=== PATIENT | female | born 1955 | race African-American/Black ===

== ENCOUNTER → 2016-11-01 | Day surgery (SDC) | payer OTHER ==
--- NOTE | 2016-11-04 09:11 | PATH ---
Surgical Pathology Report Patient Name: ROSA MARIA CARBAJAL [facility]. Rec. #: [id number] /Age/Gender: 1955 (Age: 61) / F Account: [id number] Location: [facility] RADIOLOGY U Taken: 11/01/2016 Received: 11/01/2016 Reported: 11/04/2016 Physicians: Maria De Jesus Downing M.D. 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 REMAINING BREAST TISSUE WITH FIBROCYSTIC CHANGES INCLUDING USUAL DUCTAL HYPERPLASIA (UDH), STROMAL FIBROSIS, DUCTAL DILATATION, AND CYSTIC APOCRINE METAPLASIA. Comment: Also see prior specimens [id number] and [id number]. Electronically Signed Olegario Lerner M.D. Gross Description Received in formalin labeled "right breast 4-5:00 retro," are 5 marshall-yellow, cylindrical portions of fibroadipose tissue ranging from 0.5-2.0 cm. in length and averaging 0.2 cm. in diameter. The specimen is submitted in toto in one cassette. Time to formalin fixation: Less than one minute Total formalin fixation time: Approximately 8 hours saudi/11/01/2016
--- NOTE | 2016-11-04 14:02 | OP ---
DATE OF OPERATION: 11/01/2016 PREOPERATIVE DIAGNOSIS: Right breast mass 4-5 o'clock, retroareolar. POSTOPERATIVE DIAGNOSIS: Right breast mass 4-5 o'clock, retroareolar. PROCEDURE: Right ultrasound-guided core biopsy with clip placement. ANESTHESIA: Local. ATTENDING SURGEON: Mj Funk MD ESTIMATED BLOOD LOSS: Minimal. COMPLICATIONS: None. PROCEDURE: Patient was made aware of the risks and benefits of the procedure and consented. She was placed in supine condition. Under sterile conditions with 1% lidocaine for local anesthesia, a small shantelle was made in the skin. Using a 13-gauge approach, 5 cores were obtained and submitted to Pathology. Likewise, under ultrasound guidance, a clip was placed into the biopsy region. Well tolerated by the patient. Steri-Strips and a sterile bandage were applied. We will contact her with the results. MJ FUNK M.D. [id number]
== END | disposition home or self-care (01) ==
LOC: FRADUS-SUR 13:03
PROVIDERS: ATTEND Surgery Surgical Oncology
PROC: 0HBT3ZX Excision of Right Breast, Percutaneous Approach, Diagnostic (ICD-10-PCS; principal; 2016-11-01)
DX: N63 Unspecified lump in breast (principal); N60.31 Fibrosclerosis of right breast; N60.81 Other benign mammary dysplasias of right breast; N64.89 Other specified disorders of breast; N60.11 Diffuse cystic mastopathy of right breast; D24.1 Benign neoplasm of right breast
CPT/HCPCS: 19083; 87899; 88305-TC; A4648

== ENCOUNTER 2017-06-19 16:33 | Inpatient (IN) | payer OTHER ==
--- NOTE | 2017-06-19 16:38 | PDOC ---
History of Present Illness - General Chief Complaint: Chest Pain Stated Complaint: CHEST PAIN X 1 MONTH Time Seen by Provider: 06/19/17 16:38 - History of Present Illness Initial Comments: 06/19/17 16:56 The patient is a 61 year old female, with a significant past medical history of cystic breasts, fibroids, who presents to the emergency department with chest pain for 1 month. Patient states that she has been having chest pain upon exertion and has to constantly pause when she walks. She states that her chest pain subsides when she is at rest. She states that she feels like her heart is beating out of her chest. She that for the past week her chest pain has worsened. She also reports associated SOB upon exertion as well as some cramping sensations in her arms. She denies history of heart attack, no other previous cardiac history. She denies any recent back pain. She denies recent fevers, chills, headache or dizziness. She denies recent nausea, vomit, diarrhea or constipation. She denies recent dysuria, frequency, urgency or hematuria. Allergies: NKA Past surgical history: lumpectomies, hysterectomy. Social history: Nonsmoker. Denies EtOH use and recreational drug use. Primary Care Physician: Erick Webber M.D., Christina) Past History - Past Medical History Anemia: No Asthma: No Cancer: No Cardiac Disorders: No CVA: No COPD: No CHF: No Dementia: No Diabetes: No GI Disorders: No Disorders: No HTN: No Hypercholesterolemia: No Liver Disease: No Seizures: No Thyroid Disease: No - Surgical History Abdominal Surgery: No Appendectomy: No Cardiac Surgery: No Cholecystectomy: No Lung Surgery: No Neurologic Surgery: No Orthopedic Surgery: No - Suicide/Smoking/Psychosocial Hx Smoking Status: No Smoking History: Never smoked Number of Cigarettes Smoked Daily: 0 Hx Alcohol Use: No Drug/Substance Use Hx: No Substance Use Type: None Hx Substance Use Treatment: No - Past Medical History Allergies/Adverse Reactions: Allergies Allergy/AdvReac Type Severity Reaction Status Date / Time No Known Allergies Allergy Verified 06/19/17 16:47 Home Medications: Ambulatory Orders Vit B Cmplx #9/FA/Vit C/Vit E [Renatabs Tablet] 1 tab PO DAILY 06/26/12 Ascorbic Acid [Vitamin C] 1,000 mg PO DAILY 06/19/17 Cholecalciferol (Vitamin D3) [Vitamin D3] 1,000 unit PO DAILY 06/19/17 Vitamin E Acetate [Vitamin E] 1,000 unit PO DAILY 06/19/17 Cardiac Specific PMH - Complaint Specific PMHX Pacemaker: No Review of Systems - Review of Systems Comments:: 06/19/17 16:56 CONSTITUTIONAL: Absent: fever, no chills, no fatigue EYES: Absent: visual changes ENT: Absent: ear pain, no sore throat CARDIOVASCULAR: Present: chest pain on exertion, palpitations. RESPIRATORY: Present: SOB Absent: cough. GI: Absent: abdominal pain, no nausea, no vomiting, no constipation, no diarrhea GENITOURINARY: Absent: dysuria, no frequency, no hematuria MUSKULOSKELETAL: Present: cramping in upper extremities. Absent: back pain, no arthralgia. SKIN: Absent: rash NEURO: Absent: headache (Gabrielle Alegria) *Physical Exam - Vital Signs Last Vital Signs Temp Pulse Resp BP Pulse Ox 98.7 F 109 H 16 146/103 98 06/19/17 16:37 06/19/17 16:37 06/19/17 16:37 06/19/17 16:37 06/19/17 16:37 - Physical Exam Comments: 06/19/17 16:58 GENERAL: Well-appearing, well-nourished. No apparent distress. HEENT: Normocephalic, atraumatic. PERRL, EOM intact. CARDIOVASCULAR: No reproducible chest pain. Normal S1, S2. Regular rate and rhythm. PULMONARY: Clear to auscultation bilaterally. ABDOMEN: Soft, non-distended, non-tender. EXTREMITIES: Normal ROM in all four extremities. No gross deformities. SKIN: Warm, dry. No rash NEUROLOGICAL: No focal neurological deficits. (Gabrielle Alegria) Heart Score/ECG Review - ECG Intrepretation Comment:: 06/19/17 17:26 Sinus tachycardia Possible left atrial enlargement Left axis deviation Nonspecific ST abnormality Vent rate 103 bpm (Gabrielle Alegria) ED Treatment Course - LABORATORY CBC & Chemistry Diagram: 06/19/17 17:35 06/19/17 17:35 - ADDITIONAL ORDERS Additional order review: Laboratory Results 06/19/17 06/19/17 17:35 17:35 Sodium 140 Potassium 3.8 Chloride 108 H Carbon Dioxide 27 Anion Gap 5 L BUN 17 D Creatinine 0.9 D Creat Clearance w eGFR > 60 Random Glucose 110 H D Calcium 9.1 Total Bilirubin 0.4 D AST 44 H ALT 42 H D Alkaline Phosphatase 81 Troponin I 0.09 Total Protein 6.7 Albumin 4.1 06/19/17 17:35 RBC 4.54 MCV 92.9 MCHC 33.5 RDW 12.8 MPV 9.8 Neutrophils % 53.8 Lymphocytes % 32.5 Monocytes % 6.7 Eosinophils % 2.8 Basophils % 4.2 H - RADIOLOGY Radiology Studies Ordered: Category Date Time Status CHEST X-RAY PORTABLE* [RAD] Stat Radiology 06/19/17 16:47 Completed Radiograph Interpretation: 06/19/17 17:22 Chest X-ray Impression: no acute disease Reported by: Tulio Watson MD 06/19/17 [id number] (Gabrielle Alegria) - Medications Given in the ED: ED Medications Discontinued Medications Generic Name Dose Route Start Last Admin Trade Name Freq PRN Reason Stop Dose Admin Aspirin 324 mg 06/19/17 16:47 06/19/17 17:00 Asa - PO 06/19/17 16:48 324 mg ONCE ONE Administration Progress Note - Progress Note Progress Note: Case will be endorsed to Dr. Cook, pt with unstable agina. Will require admission, call to hospitalist made (Partha Velasquez) *DC/Admit/Observation/Transfer Diagnosis at time of Disposition: Unstable angina - Discharge Dispostion Condition at time of disposition: Good - Referrals Referrals: Erick Webber [Primary Care Provider] - - Patient Instructions - Post Discharge Activity - Attestations Scribe Attestion: 06/19/17 17:00 Documentation prepared by Gabrielle Alegria, acting as medical legal investigator for Partha Velasquez MD. (Gabrielle Alegria)
[2017-06-19] MEDS ORDERED: ASPIRIN 81 MG CHEWABLE TABLETS PO ONE (16:47)
[2017-06-19] MEDS ORDERED: ASPIRIN 81 MG CHEWABLE TABLETS ONE (17:04)
[2017-06-19 18:05] LABS: BASO % 4.2 % (0-2.0); EOS % 2.8 % (0-4.5); HEMATOCRIT 42.2 % (32.4-45.2); HEMOGLOBIN 14.1 GM/dl (10.7-15.3); LYMPH % 32.5 % (8-40); MCH 31.1 pg (25.7-33.7); MCHC 33.5 g/dl (32.0-36.0); MEAN CELL VOLUME 92.9 fl (80-96); MEAN PLT VOLUME 9.8 fl (7.5-11.1); MONO % 6.7 % (3.8-10.2); NEUT % 53.8 % (42.8-82.8); PLATELET COUNT 207 K/MM3 (134-434); RBC 4.54 M/mm3 (3.60-5.2); RDW 12.8 % (11.6-15.6); WHITE BLOOD COUNT 5.6 K/mm3 (4.0-10.8)
[2017-06-19 18:12] LABS: ALBUMIN 4.1 g/dl (3.5-5.0); ALK PHOS 81 U/L (32-92); ANION GAP 5 (8-16); BILIRUBIN,TOTAL 0.4 mg/dl (0.2-1.0); BLOOD UREA NITROGEN 17 mg/dl (7-18); CALCIUM 9.1 mg/dl (8.4-10.2); CHLORIDE 108 mmol/L (98-107); CO2 27 mmol/L (22-28); CREATININE 0.9 mg/dl (0.6-1.3); GLUCOSE,RANDOM 110 mg/dl (74-106); POTASSIUM 3.8 mmol/L (3.5-5.1); SGOT/AST 44 U/L (10-42); SGPT/ALT 42 U/L (10-40); SODIUM 140 mmol/L (136-145); TOT PROT 6.7 g/dl (6.4-8.3)
--- NOTE | 2017-06-19 20:08 | HP ---
CHIEF COMPLAINT: Chest Pain PCP: Erick Webber M.D. HISTORY OF PRESENT ILLNESS: This is a 61 y/o woman who presents to the ED with left sided chest pain x 1 month. Patient reports having intermittent squeezing chest pain non- radiating, increased with movement. Patient does report relief at rest. Patient also reports SOB on exertion. Patient denies having any cardiac history. Patient denies strenuous work outs, or heavy lifting. Patient denies fever, chills, cough, dizziness, AP, N/V/D, constipation, dysuria. Patient reports familial hx - Father. ER course was notable for: (1) Troponin I- 0.09 (2) EKG- Sinus Tachycardia, non specific T wave abnormality (3) Chest Xray- No acute disease Recent Travel: None PAST MEDICAL HISTORY: Cystic Breasts Fibroids PAST SURGICAL HISTORY: Lumpectomy x2 Hysterectomy Social History: Smoking: Never Alcohol: None Drugs: None Family History: Father: Cardiac age 86 Allergies No Known Allergies Allergy (Verified 06/19/17 16:47) HOME MEDICATIONS: Home Medications Medication Instructions Recorded Vit B Cmplx #9/FA/Vit C/Vit E 1 tab PO DAILY 06/26/12 [Renatabs Tablet] Ascorbic Acid [Vitamin C] 1,000 mg PO DAILY 06/19/17 Cholecalciferol (Vitamin D3) 1,000 unit PO DAILY 06/19/17 [Vitamin D3] Vitamin E Acetate [Vitamin E] 1,000 unit PO DAILY 06/19/17 REVIEW OF SYSTEMS CONSTITUTIONAL: Absent: fever, chills, diaphoresis, generalized weakness, malaise, loss of appetite, weight change HEENT: Absent: rhinorrhea, nasal congestion, throat pain, throat swelling, difficulty swallowing, mouth swelling, ear pain, eye pain, visual changes CARDIOVASCULAR: chest pain Absent: syncope, palpitations, irregular heart rate, lightheadedness, peripheral edema RESPIRATORY: shortness of breath, dyspnea with exertion Absent: cough, orthopnea, wheezing, stridor, hemoptysis GASTROINTESTINAL: Absent: abdominal pain, abdominal distension, nausea, vomiting, diarrhea, constipation, melena, hematochezia GENITOURINARY: Absent: dysuria, frequency, urgency, hesitancy, hematuria, flank pain, genital pain MUSCULOSKELETAL: Absent: myalgia, arthralgia, joint swelling, back pain, neck pain SKIN: Absent: rash, itching, pallor HEMATOLOGIC/IMMUNOLOGIC: Absent: easy bleeding, easy bruising, lymphadenopathy, frequent infections ENDOCRINE: Absent: unexplained weight gain, unexplained weight loss, heat intolerance, cold intolerance NEUROLOGIC: Absent: headache, focal weakness or paresthesias, dizziness, unsteady gait, seizure, mental status changes, bladder or bowel incontinence PSYCHIATRIC: Absent: anxiety, depression, suicidal or homicidal ideation, hallucinations. PHYSICAL EXAMINATION Vital Signs - 24 hr 06/19/17 16:37 Temperature 98.7 F Pulse Rate 109 H Respiratory 16 Rate Blood Pressure 146/103 O2 Sat by Pulse 98 Oximetry (%) GENERAL: Awake, alert, and fully oriented, in no acute distress. HEAD: Normal with no signs of trauma. EYES: Pupils equal, round and reactive to light, extraocular movements intact, sclera anicteric, conjunctiva clear. No lid lag. EARS, NOSE, THROAT: Ears normal, nares patent, oropharynx clear without exudates. Moist mucous membranes. NECK: Normal range of motion, supple without lymphadenopathy, JVD, or masses. LUNGS: Breath sounds equal, clear to auscultation bilaterally. No wheezes, and no crackles. No accessory muscle use. HEART: Regular rate and rhythm, normal S1 and S2 without murmur, rub or gallop. CP non reproducible ABDOMEN: Soft, nontender, not distended, normoactive bowel sounds, no guarding, no rebound, no masses. No hepatomegaly or splenomegaly. MUSCULOSKELETAL: Normal range of motion at all joints. No bony deformities or tenderness. No CVA tenderness. UPPER EXTREMITIES: 2+ pulses, warm, well-perfused. No cyanosis. No clubbing. No peripheral edema. LOWER EXTREMITIES: 2+ pulses, warm, well-perfused. No calf tenderness. No peripheral edema. NEUROLOGICAL: Cranial nerves II-XII intact. Normal speech. Gait not observed. PSYCHIATRIC: Cooperative. Good eye contact. Appropriate mood and affect. SKIN: Warm, dry, normal turgor, no rashes or lesions noted, normal capillary refill. Laboratory Results - last 24 hr 06/19/17 06/19/17 06/19/17 17:35 17:35 17:35 WBC 5.6 D RBC 4.54 Hgb 14.1 Hct 42.2 MCV 92.9 MCH 31.1 MCHC 33.5 RDW 12.8 Plt Count 207 MPV 9.8 Neutrophils % 53.8 Lymphocytes % 32.5 Monocytes % 6.7 Eosinophils % 2.8 Basophils % 4.2 H Sodium 140 Potassium 3.8 Chloride 108 H Carbon Dioxide 27 Anion Gap 5 L BUN 17 D Creatinine 0.9 D Creat Clearance w eGFR > 60 Random Glucose 110 H D Calcium 9.1 Total Bilirubin 0.4 D AST 44 H ALT 42 H D Alkaline Phosphatase 81 Troponin I 0.09 Total Protein 6.7 Albumin 4.1 Heart Score/ECG Review - ECG Intrepretation Comment:: 06/19/17 17:26 Sinus tachycardia Possible left atrial enlargement Left axis deviation Nonspecific ST abnormality Vent rate 103 bpm ASSESSMENT/PLAN: This is a 61 y/o woman with a PMHx of Cystic Breasts, Fibroids. Placed on Tele Observation for Chest Pain r/o ACS. Problems: 1. Chest Pain 2. Shortness of Breath 3. Elevated Troponin 4. Elevated Blood Pressure FEN - PO Fluids - Replete lytes prn - Low Na Diet Code Status: Full Code Dispo: Tele Observation Problem List - Problem (1) Unstable angina Assessment/Plan: - r/o ACS - Cardiac Monitoring - Serial Enzymes - Chest Xray- no active disease - EKG- ST with non-specific T wave abnormality, change when compared to prior study NSR 08/08 - Continue Asa - BB - Appreciate Cardiology Consult - Echo in am Code(s): I20.0 - UNSTABLE ANGINA (2) Chest pain Assessment/Plan: - r/o ACS - Heart Score 5 - TAWNYA 2 - Serial Enzymes - Continue ASA - BB - Appreciate Cardiology Consult - NTG prn Code(s): R07.9 - CHEST PAIN, UNSPECIFIED (3) Blood pressure elevated without history of HTN Assessment/Plan: - Monitor BP - Will start on BB - Monitor renal function - FU with PCP Code(s): R03.0 - ELEVATED BLOOD-PRESSURE READING, W/O DIAGNOSIS OF HTN (4) DVT prophylaxis Assessment/Plan: - OOB - SCDs Code(s): NUL8928 - Visit type - Emergency Visit Emergency Visit: Yes ED Registration Date: 06/19/17 Care time: The patient presented to the Emergency Department on the above date and was hospitalized for further evaluation of their emergent condition. - New Patient This patient is new to me today: Yes Date on this admission: 06/19/17 - Critical Care Critical Care patient: No
[2017-06-19 22:24] VITALS: BMI 23.3
[2017-06-20 07:53] LABS: ANION GAP 3 (8-16); BLOOD UREA NITROGEN 11 mg/dl (7-18); CALCIUM 8.6 mg/dl (8.4-10.2); CHLORIDE 107 mmol/L (98-107); CHOLESTEROL 214 mg/dl; CO2 29 mmol/L (22-28); CREATININE 0.6 mg/dl (0.6-1.3); GLUCOSE,RANDOM 98 mg/dl (74-106); HDL CHOLESTEROL 68 mg/dl (29-89); LDL CHOLESTEROL (ONLY DFH) 136 mg/dl; MAGNESIUM 2.2 mg/dL (1.8-2.4); PHOSPHOROUS 2.9 mg/dl (2.5-4.6); POTASSIUM 3.7 mmol/L (3.5-5.1); SODIUM 139 mmol/L (136-145); TRIGLYCERIDES 50 mg/dl (35-160)
[2017-06-20 08:05] LABS: BASO % 0.4 % (0-2.0); HEMATOCRIT 39.6 % (32.4-45.2); HEMOGLOBIN 13.3 GM/dl (10.7-15.3); LYMPH % 37.5 % (8-40); MCH 31.1 pg (25.7-33.7); MCHC 33.6 g/dl (32.0-36.0); MEAN CELL VOLUME 92.5 fl (80-96); MEAN PLT VOLUME 9.7 fl (7.5-11.1); MONO % 8.7 % (3.8-10.2); NEUT % 49.4 % (42.8-82.8); PLATELET COUNT 199 K/MM3 (134-434); RBC 4.28 M/mm3 (3.60-5.2); RDW 12.8 % (11.6-15.6); WHITE BLOOD COUNT 4.3 K/mm3 (4.0-10.8)
--- NOTE | 2017-06-20 08:57 | DS ---
Physical Exam: SUBJECTIVE: Patient seen and examined, reports substernal non-raadiating chest pain upon ambulation OBJECTIVE: This is a 61 y/o woman who presents to the ED with left sided chest pain x 1 month. Patient reports having intermittent squeezing chest pain non- radiating, increased with movement. Patient does report relief at rest. Patient also reports SOB on exertion. Patient denies having any cardiac history. Patient denies strenuous work outs, or heavy lifting. Patient denies fever, chills, cough, dizziness, AP, N/V/D, constipation, dysuria. Patient reports familial hx - Father. ER course was notable for: (1) Troponin I- 0.09 (2) EKG- Sinus Tachycardia, non specific T wave abnormality (3) Chest Xray- No acute disease Vital Signs Period Temp Pulse Resp BP Sys/Dawson Pulse Ox Last 24 Hr 97.8 F-98.7 F 67-109 16-20 143-152/92-103 98-100 PHYSICAL EXAM GENERAL: The patient is awake, alert, and fully oriented, in no acute distress. HEAD: Normal with no signs of trauma. EYES: PERRL, extraocular movements intact, sclera anicteric, conjunctiva clear. ENT: Ears normal, nares patent, oropharynx clear without exudates, moist mucous membranes. NECK: Trachea midline, full range of motion, supple. LUNGS: Breath sounds equal, clear to auscultation bilaterally, no wheezes, no crackles, no accessory muscle use. HEART: Regular rate and rhythm, S1, S2 without murmur, rub or gallop. ABDOMEN: Soft, nontender, nondistended, normoactive bowel sounds, no guarding, no rebound, no hepatosplenomegaly, no masses. EXTREMITIES: 2+ pulses, warm, well-perfused, no edema. NEUROLOGICAL: Cranial nerves II through XII grossly intact. Normal speech, gait not observed. PSYCH: Normal mood, normal affect. SKIN: Warm, dry, normal turgor, no rashes or lesions noted. LABS Laboratory Results - last 24 hr 06/19/17 06/19/17 06/19/17 17:35 17:35 17:35 WBC 5.6 D RBC 4.54 Hgb 14.1 Hct 42.2 MCV 92.9 MCH 31.1 MCHC 33.5 RDW 12.8 Plt Count 207 MPV 9.8 Neutrophils % 53.8 Lymphocytes % 32.5 Monocytes % 6.7 Eosinophils % 2.8 Basophils % 4.2 H Sodium 140 Potassium 3.8 Chloride 108 H Carbon Dioxide 27 Anion Gap 5 L BUN 17 D Creatinine 0.9 D Creat Clearance w eGFR > 60 Random Glucose 110 H D Calcium 9.1 Phosphorus Magnesium Total Bilirubin 0.4 D AST 44 H ALT 42 H D Alkaline Phosphatase 81 Troponin I 0.09 Total Protein 6.7 Albumin 4.1 Triglycerides Cholesterol Total LDL Cholesterol HDL Cholesterol 06/20/17 06/20/17 06/20/17 00:10 06:30 06:30 WBC 4.3 RBC 4.28 Hgb 13.3 Hct 39.6 MCV 92.5 MCH 31.1 MCHC 33.6 RDW 12.8 Plt Count 199 MPV 9.7 Neutrophils % 49.4 Lymphocytes % 37.5 Monocytes % 8.7 Eosinophils % 4.0 Basophils % 0.4 Sodium 139 Potassium 3.7 Chloride 107 Carbon Dioxide 29 H Anion Gap 3 L BUN 11 D Creatinine 0.6 D Creat Clearance w eGFR Random Glucose 98 Calcium 8.6 Phosphorus 2.9 Magnesium 2.2 Total Bilirubin AST ALT Alkaline Phosphatase Troponin I 1.17 H* Total Protein Albumin Triglycerides 50 Cholesterol 214 Total LDL Cholesterol 136 HDL Cholesterol 68 06/20/17 06:30 WBC RBC Hgb Hct MCV MCH MCHC RDW Plt Count MPV Neutrophils % Lymphocytes % Monocytes % Eosinophils % Basophils % Sodium Potassium Chloride Carbon Dioxide Anion Gap BUN Creatinine Creat Clearance w eGFR Random Glucose Calcium Phosphorus Magnesium Total Bilirubin AST ALT Alkaline Phosphatase Troponin I 0.90 H* Total Protein Albumin Triglycerides Cholesterol Total LDL Cholesterol HDL Cholesterol Laboratory Tests 06/19/17 06/20/17 06/20/17 17:35 00:10 06:30 Troponin I 0.09 1.17 H* 0.90 H* Imaging EKG, Sinus tachycardia, Possible left atrial enlargement, Left axis deviation, Nonspecific ST abnormality, Vent rate 103 bpm EKG 06/20/17, sinus rhythmn, flattened t waves leads III, AVF HOSPITAL COURSE: Patient was admitted from the emergency department for chest pain r/o ACS. ASA given upon arrival to the emergency department. patient was placed on cardiac monitoring upon admission, first troponin ws noted to be WNL, 2nd troponin was noted to be elevated, repeat EKG was notable for twave flattening in leads III, AVF. Patient denies any chest pain, however, she does report dyspnea upon exertion. Dr Aguillon, legal librarian was consulted and agree with plan for emergent transfer to cardiac cath. Ramipril, lipitor, lopressor was ordered and heparin gtt was started at 0800. [facility] transfer was contacted and patient was accepted for transfer for emergent cardiac cath to the service of Dr Washington, report given to ELVIRA Gutierrez and EKG faxed. Patient was made aware of emergent need for cardiac cath and agree with plan, all questions answered. PLAN - emergent transfer to cardiac cath at [facility] accepted to the service of Dr Tapia - all copies of chart, echo on cd-rom given given to inspection and testing supervisor in hand - [id number] en route to cardiac cath with ALS transport Date of Admission:06/19/17 Date of Discharge: 06/20/17 Minutes to complete discharge: 45 Discharge Summary Reason For Visit: CHEST PAIN Current Active Problems Blood pressure elevated without history of HTN (Acute) Chest pain (Acute) DVT prophylaxis (Acute) Unstable angina (Acute) Condition: Good - Instructions Referrals: Erick Webber [Primary Care Provider] - - Home Medications Comprehensive Discharge Medication List: Ambulatory Orders Vit B Cmplx #9/FA/Vit C/Vit E [Renatabs Tablet] 1 tab PO DAILY 06/26/12 Ascorbic Acid [Vitamin C] 1,000 mg PO DAILY 06/19/17 Cholecalciferol (Vitamin D3) [Vitamin D3] 1,000 unit PO DAILY 06/19/17 Vitamin E Acetate [Vitamin E] 1,000 unit PO DAILY 06/19/17 This patient is new to me today: Yes Date on this admission: 06/20/17 Emergency Visit: Yes ED Registration Date: 06/19/17 Care time: The patient presented to the Emergency Department on the above date and was hospitalized for further evaluation of their emergent condition. Critical Care patient: Yes Total Critical Care Time (in minutes): 45 Critical Care Statement: The care of this patient involved high complexity decision making to prevent further life threatening deterioration of the patient 's condition and/or to evaluate & treat vital organ system(s) failure or risk of failure. - Discharge Referral Referred to [facility].: No
[2017-06-20] MEDS ORDERED: HEPARIN NA (PORCINE) 5,000 UNITS/ML 1ML VIAL IVPUSH PRN ×2 (09:01)
[2017-06-20] MEDS ORDERED: RAMIPRIL 5 MG CAPSULE (FP) PO ONE (09:10)
[2017-06-20] MEDS ORDERED: ATORVASTATIN CA 80 MG TABLET (FP) PO ONE (09:10)
[2017-06-20] MEDS ORDERED: HEPARIN INFUSION - 25,000 UNITS/500 ML INFUS.BAG IVPB SCH (09:15)
[2017-06-20] MEDS ORDERED: HEPARIN NA (PORCINE) 5,000 UNITS/ML 1ML VIAL IVPUSH ONE (09:43)
[2017-06-20] MEDS ORDERED: METOPROLOL TARTRATE 25 MG TABLET (FP) PO SCH (10:00)
[2017-06-20] MEDS ORDERED: ASPIRIN 81 MG CHEWABLE TABLETS PO SCH (10:00)
[2017-06-20 10:19] VITALS: BP 163/86; PULSE 71; TEMP 97.6
--- NOTE | 2017-06-20 15:23 | EKG ---
Test Reason : Blood Pressure : / mmHG Vent. Rate : 080 BPM Atrial Rate : 080 BPM P-R Int : 162 ms QRS Dur : 080 ms QT Int : 382 ms P-R-T Axes : 046 -39 017 degrees QTc Int : 440 ms NORMAL SINUS RHYTHM WITH SINUS ARRHYTHMIA LEFT AXIS DEVIATION NONSPECIFIC T WAVE ABNORMALITY WHEN COMPARED WITH ECG OF 20-JUN-2017 04:44, NONSPECIFIC T WAVE ABNORMALITY NOW EVIDENT IN ANTERIOR LEADS Confirmed by MD BRYANT, ARIES ([id number]) on 06/20/2017 3:22:53 PM Referred By: JEFF NULL Confirmed By:ARIES HURTADO MD
--- NOTE | 2017-06-20 15:24 | EKG ---
Test Reason : Blood Pressure : / mmHG Vent. Rate : 103 BPM Atrial Rate : 103 BPM P-R Int : 172 ms QRS Dur : 076 ms QT Int : 344 ms P-R-T Axes : 070 -30 058 degrees QTc Int : 450 ms SINUS TACHYCARDIA POSSIBLE LEFT ATRIAL ENLARGEMENT LEFT AXIS DEVIATION NONSPECIFIC ST ABNORMALITY WHEN COMPARED WITH ECG OF 25-JUL-2015 13:45, HR faster by 33 bpm Confirmed by MD BRYANT, ARIES ([id number]) on 06/20/2017 3:24:40 PM Referred By: DR NULL Confirmed By:ARIES HURTADO MD
[2017-06-20] MEDS ORDERED: ATORVASTATIN CA 10 MG TABLET (FP) PO SCH (22:00)
--- NOTE | 2017-06-23 15:57 | EKG ---
Test Reason : Blood Pressure : / mmHG Vent. Rate : 063 BPM Atrial Rate : 063 BPM P-R Int : 190 ms QRS Dur : 080 ms QT Int : 430 ms P-R-T Axes : 063 -32 028 degrees QTc Int : 440 ms NORMAL SINUS RHYTHM LEFT AXIS DEVIATION NONSPECIFIC ST ABNORMALITY WHEN COMPARED WITH ECG OF 19-JUN-2017 17:22, VENT. RATE HAS DECREASED BY 40 BPM NONSPECIFIC T WAVE ABNORMALITY NOW EVIDENT IN INFERIOR LEADS Confirmed by MD BRYANT, ARIES ([id number]) on 06/23/2017 3:57:08 PM Referred By: DR NULL Confirmed By:ARIES HURTADO MD
== END 2017-06-20 10:05 | disposition short-term general hospital (02) | DRG 198 ==
LOC: FER 16:33 → FM/S 21:03 → OBSVTOIN 06-20 09:00
PROVIDERS: ADMIT Internal Medicine; ATTEND Nurse Practitioner Family
DX: I20.0 Unstable angina (principal); R03.0 Elevated blood-pressure reading, without diagnosis of hypertension
CPT/HCPCS: 36415; 71045-TC; 80048; 80053; 80061; 82550; 82553; 83036; 83735; 84100; 84484; 85025; 93005; 93306-TC; 99285-25; G0378; J1644

== ENCOUNTER 2018-03-07 19:14 | Emergency (ER) | payer OTHER ==
[2018-03-07 19:27] VITALS: BP 147/94; PULSE 80; TEMP 98.5; BMI 22.8
--- NOTE | 2018-03-07 19:55 | PDOC ---
History of Present Illness - General History Source: Patient Exam Limitations: No Limitations - History of Present Illness Initial Comments: 03/07/18 20:30 The patient is 62 a year old female, with a significant PMH of hypercholesterolemia, HTN, and stent placement, who presents to the emergency department complaining of throat pain that began 3 days ago. The patient reports that her throat is burning accompanied with ear pain, dysphagia, and cough in the morning with white phlegm. The patient also mentioned she had a fever and nasal congestion last week. The patient denies any sick contact, chest pain, shortness of breath, headache and dizziness. Denies fever, chills, nausea, vomit, diarrhea and constipation. Denies dysuria, frequency, urgency and hematuria. Allergies: NKDA Past surgical history: Cardiac stent placement Social history: None reported PCP: None reported <Mike Owens - Last Filed: 03/07/18 22:11> <Solange Mackey - Last Filed: 03/08/18 04:34> - General Chief Complaint: Pain, Acute Stated Complaint: BURNING SENSATION IN THROAT/SWELLING Time Seen by Provider: 03/07/18 19:40 Past History <Mike Owens - Last Filed: 03/07/18 22:11> - Past Medical History Anemia: No Asthma: No Cancer: No Cardiac Disorders: Yes (STENT PLACEMENT) CVA: No COPD: No CHF: No Dementia: No Diabetes: No GI Disorders: No Disorders: No HTN: Yes Hypercholesterolemia: Yes Liver Disease: No Seizures: No Thyroid Disease: No - Surgical History Abdominal Surgery: No Appendectomy: No Cardiac Surgery: No Cholecystectomy: No Lung Surgery: No Neurologic Surgery: No Orthopedic Surgery: No - Suicide/Smoking/Psychosocial Hx Smoking Status: No Smoking History: Never smoked Have you smoked in the past 12 months: No Number of Cigarettes Smoked Daily: 0 Information on smoking cessation initiated: No Hx Alcohol Use: No Drug/Substance Use Hx: No Substance Use Type: None Hx Substance Use Treatment: No <Solange Mackey - Last Filed: 03/08/18 04:34> - Past Medical History Allergies/Adverse Reactions: Allergies Allergy/AdvReac Type Severity Reaction Status Date / Time No Known Allergies Allergy Verified 06/19/17 16:47 Home Medications: Ambulatory Orders Aspirin [Adult Aspirin] 81 mg PO DAILY 03/07/18 Atorvastatin Ca [Lipitor] 10 mg PO HS 03/07/18 Lisinopril 5 mg PO DAILY 03/07/18 Metoprolol Succinate 25 mg PO DAILY 03/07/18 Ticagrelor [Brilinta] 60 mg PO DAILY 03/07/18 Review of Systems - Review of Systems Able to Perform ROS?: Yes Comments:: 03/07/18 20:30 GENERAL/CONSTITUTIONAL: No fever or chills. No weakness. HEAD, EYES, EARS, NOSE AND THROAT: +Throat pain and ear pain. No change in vision. CARDIOVASCULAR: No chest pain or shortness of breath. RESPIRATORY: No cough, wheezing, or hemoptysis. GASTROINTESTINAL: No nausea, vomiting, diarrhea or constipation. GENITOURINARY: No dysuria, frequency, or change in urination. MUSCULOSKELETAL: No joint or muscle swelling or pain. No neck or back pain. SKIN: No rash NEUROLOGIC: No headache, vertigo, loss of consciousness, or change in strength/ sensation. ENDOCRINE: No increased thirst. No abnormal weight change. HEMATOLOGIC/LYMPHATIC: No anemia, easy bleeding, or history of blood clots. ALLERGIC/IMMUNOLOGIC: No hives or skin allergy. <Mike Owens - Last Filed: 03/07/18 22:11> *Physical Exam - Vital Signs Last Vital Signs Temp Pulse Resp BP Pulse Ox 98.5 F 80 16 147/94 99 03/07/18 19:23 03/07/18 19:23 03/07/18 19:23 03/07/18 19:23 03/07/18 19:23 - Physical Exam Comments: 03/07/18 20:31 GENERAL: Awake, alert, and fully oriented, in no acute distress HEAD: No signs of trauma EYES: PERRLA, EOMI, sclera anicteric, conjunctiva clear ENT: +Pharyngeal erythema without edema and exudate. Auricles normal inspection , hearing grossly normal, nares patent. NECK:+ Bilateral mild erythema of the anterior cervical. Normal ROM, supple, no lymphadenopathy, JVD, or masses LUNGS: Breath sounds equal, clear to auscultation bilaterally. No wheezes, and no crackles HEART: Regular rate and rhythm, normal S1 and S2, no murmurs, rubs or gallops ABDOMEN: Soft, nontender, normoactive bowel sounds. No guarding, no rebound. No masses EXTREMITIES: Normal range of motion, no edema. No clubbing or cyanosis. No cords, erythema, or tenderness NEUROLOGICAL: Cranial nerves II through XII grossly intact. Normal speech, normal gait SKIN: Warm, Dry, normal turgor, no rashes or lesions noted. <Mike Owens - Last Filed: 03/07/18 22:11> - Vital Signs Last Vital Signs Temp Pulse Resp BP Pulse Ox 98.5 F 80 16 147/94 99 03/07/18 19:23 03/07/18 19:23 03/07/18 19:23 03/07/18 19:23 03/07/18 19:23 <Solange Mackey - Last Filed: 03/08/18 04:34> ED Treatment Course - Medications Given in the ED: ED Medications Discontinued Medications Generic Name Dose Route Start Last Admin Trade Name Freq PRN Reason Stop Dose Admin Ibuprofen 600 mg 03/07/18 20:07 03/07/18 20:11 Motrin - PO 03/07/18 20:08 600 mg ONCE ONE Administration <Mike Owens - Last Filed: 03/07/18 22:11> Medical Decision Making - Medical Decision Making Documentation has been prepared under my direction and personally reviewed by me in its entirety. I attest that this documented accurately reflects all work, treatment, procedures and medical decision making performed by me. This 62-year-old woman with a history of hypertension/coronary artery disease presents with burning throat pain with swallowing for the last few days. She had upper respiratory infection symptoms for a few days prior to starting the sore throat. No history of strep throat as an adult and no known sick contacts. She has no exposure to school-aged children. Patient has not taken anything for the pain. Exam as noted with erythema of the pharynx without edema or exudates. Patient was given 600 mg of ibuprofen for pain relief Quick strep negative. Throat culture pending. Patient to be discharged with instructions to continue rest and drink plenty of fluids. She should alternate ibuprofen/approximately with acetaminophen as needed for relief of her throat pain. She should return to the emergency room if she has severe, persistent pain and inability to swallow her own saliva or develops high fever. She will be contacted if throat culture is positive and antibiotic prescription will be transmitted to her pharmacy <Solange Mackey - Last Filed: 03/08/18 04:34> *DC/Admit/Observation/Transfer - Attestations Scribe Attestion: 03/07/18 20:32 Documentation prepared by Mike Owens, acting as chief medical officer for Solange Mackey MD. <Mike Owens - Last Filed: 03/07/18 22:11> <Solange Mackey - Last Filed: 03/08/18 04:34> Diagnosis at time of Disposition: Acute pharyngitis Qualifiers: Pharyngitis/tonsillitis etiology: unspecified etiology Qualified Code(s): J02.9 - Acute pharyngitis, unspecified - Discharge Dispostion Disposition: HOME Condition at time of disposition: Stable - Referrals Referrals: Erick Webber [Primary Care Provider] - - Patient Instructions Printed Discharge Instructions: DI for Pharyngitis/Tonsillopharyngitis -- Adult Additional Instructions: rest; drink plenty of fluids ibuprofen/naproxen/acetaminophen as needed for pain return to ER if you have worsening pain or develop high fever - Post Discharge Activity
[2018-03-07] MEDS ORDERED: IBUPROFEN 600 MG TABLET (FP) PO ONE (20:07)
[2018-03-07] MEDS ORDERED: IBUPROFEN 100 MG/5 ML UNIT DOSE CUPS ONE (20:09)
== END 2018-03-07 21:32 | disposition home or self-care (01) ==
LOC: FER 19:14
DX: J02.9 Acute pharyngitis, unspecified (principal); E78.00 Pure hypercholesterolemia, unspecified; I10 Essential (primary) hypertension; Z95.5 Presence of coronary angioplasty implant and graft
CPT/HCPCS: 87070; 87430; 99281-25

== ENCOUNTER 2018-08-10 17:59 | Emergency (ER) | payer OTHER ==
[2018-08-10 18:04] VITALS: BP 129/72; PULSE 70; TEMP 97.7; BMI 22.8
--- NOTE | 2018-08-10 19:23 | PDOC ---
History of Present Illness - General History Source: Patient Exam Limitations: No Limitations <Nina Lao - Last Filed: 08/10/18 19:16> - History of Present Illness Initial Comments: 08/10/18 19:29 The patient is a 63 year old female, with a significant PMH of sinusitis, hypercholesterolemia, HTN, and stent placement who presents to the emergency department with swelling behind the right ear for a few days. Patient admits to associated right ear fullness. She denies any sore throat or fevers. Patient states she usually has allergies during the summer time. The patient denies chest pain, shortness of breath, headache and dizziness. Denies fever, chills, nausea, vomit, diarrhea and constipation. Denies dysuria, frequency, urgency and hematuria. Allergies: NKA Past surgical history: stent placement Social history: No reported alcohol, drug or cigarette use. <Ruby Gonzales - Last Filed: 08/10/18 19:31> - General Chief Complaint: Ear Problem Stated Complaint: SWELLING BEHIND THE RT EAR Time Seen by Provider: 08/10/18 19:15 Past History - Past Medical History Anemia: No Asthma: No Cancer: No Cardiac Disorders: Yes (STENT PLACEMENT) CVA: No COPD: No CHF: No Dementia: No Diabetes: No GI Disorders: No Disorders: No HTN: Yes Hypercholesterolemia: Yes Liver Disease: No Seizures: No Thyroid Disease: No - Surgical History Abdominal Surgery: No Appendectomy: No Cardiac Surgery: Yes (CARDIAC STENT) Cholecystectomy: No Lung Surgery: No Neurologic Surgery: No Orthopedic Surgery: No - Suicide/Smoking/Psychosocial Hx Smoking Status: No Smoking History: Never smoked Have you smoked in the past 12 months: No Number of Cigarettes Smoked Daily: 0 Information on smoking cessation initiated: No Hx Alcohol Use: No Drug/Substance Use Hx: No Substance Use Type: None Hx Substance Use Treatment: No <Nina Lao - Last Filed: 08/10/18 19:16> <Ruby Gonzales - Last Filed: 08/10/18 19:31> - Past Medical History Allergies/Adverse Reactions: Allergies Allergy/AdvReac Type Severity Reaction Status Date / Time No Known Allergies Allergy Verified 08/10/18 18:00 Home Medications: Ambulatory Orders Aspirin [Adult Aspirin] 81 mg PO DAILY 03/07/18 Atorvastatin Ca [Lipitor] 80 mg PO HS 03/07/18 Metoprolol Succinate 25 mg PO DAILY 03/07/18 Ticagrelor [Brilinta] 60 mg PO DAILY 03/07/18 Fluticasone Propionate [Flonase Allergy Relief] 9.9 ml NS 1XPACU #1 spray.susp 08/10/18 Review of Systems - Review of Systems Able to Perform ROS?: Yes Comments:: 08/10/18 19:30 ADULT ROS GENERAL/CONSTITUTIONAL: No fever or chills. No weakness. HEAD, EYES, EARS, NOSE AND THROAT: No change in vision. No ear discharge. No sore throat. (+) right ear fullness. (+) swelling behind the right ear. CARDIOVASCULAR: No chest pain or shortness of breath. RESPIRATORY: No cough, wheezing, or hemoptysis. GASTROINTESTINAL: No nausea, vomiting, diarrhea or constipation. GENITOURINARY: No dysuria, frequency, or change in urination. MUSCULOSKELETAL: No joint or muscle swelling or pain. No neck or back pain. SKIN: No rash NEUROLOGIC: No headache, vertigo, loss of consciousness, or change in strength/ sensation. ENDOCRINE: No increased thirst. No abnormal weight change. HEMATOLOGIC/LYMPHATIC: No anemia, easy bleeding, or history of blood clots. ALLERGIC/IMMUNOLOGIC: No hives or skin allergy. <Ruby Gonzales - Last Filed: 08/10/18 19:31> *Physical Exam - Vital Signs Last Vital Signs Temp Pulse Resp BP Pulse Ox 97.7 F 70 18 129/72 100 08/10/18 18:00 08/10/18 18:00 08/10/18 18:00 08/10/18 18:00 08/10/18 18:00 <Nina Lao - Last Filed: 08/10/18 19:16> - Vital Signs Last Vital Signs Temp Pulse Resp BP Pulse Ox 97.7 F 70 18 129/72 100 08/10/18 18:00 08/10/18 18:00 08/10/18 18:00 08/10/18 18:00 08/10/18 18:00 - Physical Exam Comments: 08/10/18 19:30 ADULT EXAM GENERAL: Awake, alert, and fully oriented, in no acute distress HEAD: No signs of trauma EYES: PERRLA, EOMI, sclera anicteric, conjunctiva clear ENT: (+) posterior oropharynx cobblestoning. (+) palpable lymph node. No fluctuance. (+) TM serous effusion. (+) Bilateral turbinate enlargement NECK: Normal ROM, supple, no lymphadenopathy, JVD, or masses LUNGS: Breath sounds equal, clear to auscultation bilaterally. No wheezes, and no crackles HEART: Regular rate and rhythm, normal S1 and S2, no murmurs, rubs or gallops ABDOMEN: Soft, nontender, normoactive bowel sounds. No guarding, no rebound. No masses EXTREMITIES: Normal range of motion, no edema. No erythema or tenderness. DP/PT pulses 2+ and symmetric. Warm and well perfused. NEUROLOGICAL: Moves all extremities. Normal speech, normal gait SKIN: Warm, Dry, normal turgor, no rashes or lesions noted. <Ruby Gonzales - Last Filed: 08/10/18 19:31> Moderate Sedation - Procedure Monitoring Vital Signs: Procedure Monitoring Vital Signs Temperature 97.7 F 08/10/18 18:00 Pulse Rate 70 08/10/18 18:00 Respiratory Rate 18 08/10/18 18:00 Blood Pressure 129/72 08/10/18 18:00 O2 Sat by Pulse Oximetry (%) 100 08/10/18 18:00 <Nina Lao - Last Filed: 08/10/18 19:16> - Procedure Monitoring Vital Signs: Procedure Monitoring Vital Signs Temperature 97.7 F 08/10/18 18:00 Pulse Rate 70 08/10/18 18:00 Respiratory Rate 18 08/10/18 18:00 Blood Pressure 129/72 08/10/18 18:00 O2 Sat by Pulse Oximetry (%) 100 08/10/18 18:00 <Ruby Gonzales - Last Filed: 08/10/18 19:31> Medical Decision Making - Medical Decision Making 08/10/18 19:16 63 yo F h/o allergic sinusitis cad here c/o right infra auricular node pain. pt states has noted a lump under her ear for few days. no f/c no sore throat. does have sense of fullness in her hears and at night feels congested, can hear pulsating bilaterally for 3 months. . no ho tia or cva. no trauma. did not take anything for pain. not taking any allergy medication currently. no other complaints. awake alert NAD lymphadenopathy right infrauricular node. ttp. no fluctuance, bilat turbinate enlargmenet. serous tm effusion. lungs clera bilaterally heartr rrr no mrg. throat post pharynx cobblestoning. differential reactive lymphadenopathy, will refer to ENTa nd nuerology. recommend decongestion flonase and motrin. <Nina Lao - Last Filed: 08/10/18 19:16> *DC/Admit/Observation/Transfer - Discharge Dispostion Decision to Admit order: No <Nina Lao - Last Filed: 08/10/18 19:16> - Attestations Scribe Attestion: 08/10/18 19:31 Documentation prepared by Ruby Gonzales, acting as medical driver for Nina Lao MD. <Ruby Gonzales - Last Filed: 08/10/18 19:31> Diagnosis at time of Disposition: Lymphadenopathy of head and neck, Sinusitis, Post-nasal drip - Discharge Dispostion Disposition: HOME Condition at time of disposition: Improved - Prescriptions Prescriptions: Fluticasone Propionate [Flonase Allergy Relief] 9.9 ml NS 1XPACU #1 spray.susp - Referrals Referrals: Agustín Eugene MD [Staff Physician] - Mo Islas MD [Staff Physician] - - Patient Instructions Printed Discharge Instructions: Sinusitis, DI for Lymphadenopathy Additional Instructions: you should use flonase nasal spray to help with decongestant. use one spray each nostril daily. use allergy medication . take zyrtec 5 mg daily to help with allergies. you should follow up with ear nose and throat. call Dr Eugene to schedule. you should also see nuerologist call to schedule to see dr. islas
[2018-08-10] MEDS ORDERED: IBUPROFEN 600 MG TABLET (FP) PO ONE ×2 (19:28→19:32)
== END 2018-08-10 19:40 | disposition home or self-care (01) ==
LOC: FER 17:59
DX: R59.1 Generalized enlarged lymph nodes (principal); R09.82 Postnasal drip; J32.9 Chronic sinusitis, unspecified; Z95.0 Presence of cardiac pacemaker; E78.00 Pure hypercholesterolemia, unspecified; I10 Essential (primary) hypertension
CPT/HCPCS: 99282-25

== ENCOUNTER → 2022-04-03 | Day surgery (SDC) | payer OTHER | END | disposition home or self-care (01) | LOC: JRADUS-SUR 10:17 | PROVIDERS: ATTEND Physician Assistant | PROC: 0H9U3ZX Drainage of Left Breast, Percutaneous Approach, Diagnostic (ICD-10-PCS; principal; 2022-04-03) | DX: N60.92 Unspecified benign mammary dysplasia of left breast (principal) | CPT/HCPCS: 19083; 77065-TC; 87899; 88305-TC; 88342-TC; A4648 ==

== ENCOUNTER 2024-09-19 17:46 | Emergency (ER) | payer OTHER ==
[2024-09-19 17:53] VITALS: BP 170/96; PULSE 68; RESP 16; TEMP 98.8; BMI 22.8
== END 2024-09-19 18:37 | disposition home or self-care (01) ==
LOC: FER 17:46
DX: N39.0 Urinary tract infection, site not specified (principal); R31.9 Hematuria, unspecified
CPT/HCPCS: 81003; 81015; 87086; 99283-25